=== PATIENT | male | born 1970 | race Caucasian/White ===

== ENCOUNTER 2018-09-03 13:04 | Outpatient (CLI) | payer OTHER ==
--- NOTE | 2018-09-03 15:04 | Ultrasound Report ---
Reason: PAINFUL EJACULATION Procedure Date: 09/03/2018 Accession Number: [id number] / [id number] Procedure: US - Testicle CPT Code: FULL RESULT: EXAM: SCROTAL ULTRASOUND EXAM DATE: 09/03/2018 02:11 PM. CLINICAL HISTORY: PAINFUL EJACULATION. COMPARISON: None. TECHNIQUE: Real-time scanning was performed with static images obtained. Color-flow images were utilized. FINDINGS: Right: Testis: 4.9 x 2.2 x 2.6 cm. Normal size and echotexture. No mass, calcification, or abnormal blood flow. A tiny lower pole cyst measures 2 mm. Epididymis: 2.7 x 1.3 x 0.9 cm. A simple cyst measures 4 x 5 x 8 mm. No solid mass or acute inflammatory process. Mild tubular ectasia noted. Hydrocele: Small. Varicocele: None. Left: Testis: 3.8 x 2.1 x 3.2 cm. Normal size and echotexture. No mass, calcification, or abnormal blood flow. Epididymis: 2.8 x 0.9 x 0.7 cm. Normal size and echotexture. No mass or abnormal blood flow. Some tubular ectasia noted. Hydrocele: Small. Varicocele: None. IMPRESSION: 1. 8 mm simple right epididymal head cyst. 2. Bilateral left greater than right tubular ectasia which can be seen with prior vasectomy or other cause of tibial obstruction. 3. Small bilateral hydroceles. 4. No masses or acute inflammatory changes evident. [facility]
== END 2018-09-03 13:05 | disposition home or self-care (01) ==
LOC: DI 13:04
PROVIDERS: ATTEND Nurse Practitioner Family
DX: N53.12 Painful ejaculation (principal); N50.3 Cyst of epididymis; N43.3 Hydrocele, unspecified
CPT/HCPCS: 76870